=== PATIENT | male | born 1955 | race Caucasian/White ===

== ENCOUNTER → 2017-01-27 | Outpatient (CLI) | payer MEDICARE, OTHER ==
--- NOTE | 2017-01-28 06:19 | CONS ---
DATE OF CONSULTATION: 01/27/2017 CONSULTATION/NEW PATIENT EVALUATION A 61-year-old gentleman who has been evaluated in the sleep center for possible obstructive sleep apnea-hypopnea syndrome. HISTORY OF PRESENT ILLNESS/SLEEP-WAKE EVALUATION: SLEEP SCHEDULE: Patient's usual sleep schedule from 11:30 p.m. until around 8 or 9 a.m. FALLING ASLEEP: Sometimes he has problem with falling asleep, but usually falls asleep well. He has TV in bedroom. DURING SLEEP: Sleeps in different positions. He has episodes of stopped breathing according to a friend. See positive symptoms of restless leg. He wakes up from sleep 3 times with nocturia. DURING THE DAY/WAKE STATE: In the morning, he wakes up tired, has problems with concentration. [place] Sleepiness Scale increased to 9. PAST MEDICAL HISTORY: Positive for cardiomyopathy, acid reflux, swelling of legs, back pain, recent finger cellulitis, Darier's disease. PAST SURGICAL HISTORY: Status post right knee surgery, status post bilateral cataract surgery. MEDICATIONS: Carvedilol, lovastatin, ropinirole, omeprazole, spironolactone, furosemide, vitamin D3 supplement, Percocet, hydroxyzine, ( ). SOCIAL HISTORY: Negative for smoking. Alcohol consumption occasional. REVIEW OF SYSTEMS: Awakenings from sleep, sleepiness during the day, dry itching skin. No fevers. No double vision. No recent chest pain. No shortness of breath. No abdominal pain. No bleeding episodes. No blood in urine. No seizure episodes. FAMILY HISTORY: Heart problems, arthritis, anemia, restless legs. PHYSICAL EXAMINATION: During physical exam, gentleman without distress. VITAL SIGNS: BP 104/64, HR 80, RR 16. Height 5 feet 2 inches, weight 169, BMI 30.9. Neck 15-1/4 inches in circumference. Temperature 97.9. Oxygen saturation at room air 95%. HEENT: PERRLA. EOMI. Oropharynx, extremely low position of soft palate. NECK: Supple. No JVD. Thyroid is not palpable. LUNGS: Clear to percussion and to auscultation. Good air exchange. No wheezing or rhonchi. HEART: S1, S2 regular. No murmurs, gallops or rubs. ABDOMEN: Slightly obese. EXTREMITIES: No clubbing or cyanosis. RISK CONTROL OFFICER: Awake, alert, and oriented x3. Cranial nerves 2 to 7 intact. There is no fasciculation or atrophy noted. No focal deficits observed. SKIN: Extremely dry with the multiple plaques on whole body except face. IMPRESSION: 1. Snoring, multiple awakenings from sleep, extremely low position of soft palate, sleepiness, witnessed episodes of stopped breathing; obstructive sleep apnea-hypopnea syndrome. 2. Mild obesity. BMI 30.9. 3. History of cardiomyopathy. 4. History of swelling of the legs. 5. Back arthritis. 6. History of anemia. 7. Recent finger cellulitis. 8. Darier's disease. 9. Status post right knee surgery. 10. Status post bilateral cataract surgery. PLAN: 1. Polysomnography for evaluation of patient's breathing during sleep. 2. CPAP/BiPAP titration if sleep study confirms obstructive sleep apnea-hypopnea syndrome. 3. Preferable position during sleep on the side. 4. No driving if patient feels any sleepiness. Patient is aware of civil and criminal liability for unsafe driving. 5. I will see patient for follow-up visit to explain results of the testing and following plan. Thank you very much for referring this patient for consultation. Sincerely, Patric Han MD, PhD, FAASM. Diplomat of [place] [employer], Sleep Medicine Board by [place] [employer] [employer] Binder Sorter of [facility] [place]
== END | disposition home or self-care (01) ==
LOC: SLEEP 15:52
PROVIDERS: ATTEND Internal Medicine
DX: G47.33 Obstructive sleep apnea (adult) (pediatric) (principal); E66.9 Obesity, unspecified; L03.019 Cellulitis of unspecified finger; Q82.8 Other specified congenital malformations of skin; Z98.890 Other specified postprocedural states; Z68.30 Body mass index [BMI] 30.0-30.9, adult; Z79.899 Other long term (current) drug therapy
CPT/HCPCS: 99211

== ENCOUNTER → 2017-02-25 | Outpatient (CLI) | payer MEDICARE, OTHER ==
[2017-02-25 14:39] LABS: CH 26.9; CHCM 32.5; HCT 42.6 % (39.0-53.0); HDW 2.85; HGB 13.6 gm/dL (13.0-17.5); MCH 26.6 pg (25.0-35.0); MCV 83.1 fL (80.0-100.0); RBC 5.13 m/uL (4.30-5.90); RDW 15.4 % (11.5-15.5); WBC 11.6 k/uL (3.8-10.6)
[2017-02-25 14:55] LABS: ALT 39 U/L (21-72); AST 29 U/L (17-59); Cholesterol 213 mg/dL (<200); HDL Cholesterol 41 mg/dL (40-60); Triglycerides 111 mg/dL (<150)
== END | disposition home or self-care (01) ==
LOC: LABWHC1 14:17
PROVIDERS: ATTEND Physician Assistant
DX: Q82.8 Other specified congenital malformations of skin (principal); Z79.899 Other long term (current) drug therapy
CPT/HCPCS: 36415; 80061; 84450; 84460; 85027

== ENCOUNTER → 2017-06-15 | Outpatient (CLI) | payer MEDICARE, OTHER ==
--- NOTE | 2017-06-15 14:53 | PN ---
PROGRESS NOTE DATE OF SERVICE: 06/15/2017 A 62-year-old gentleman who has been followed in the Sleep Center for treatment of obstructive sleep apnea-hypopnea syndrome. Recently patient had diagnostic polysomnogram and CPAP titration and I discussed results of the sleep studies with patient in details. He has severe sleep apnea. According to results of titration, respiration was on control with CPAP at 10 cm of water. Patient received his CPAP unit about 1 month ago. He started to use it, but for some reason, according to patient, he takes his mask off during the night. Subsequently, reading from the machine showed that he is not compliant with the treatment at the present time. Pressure is 10 cm of water. Leak is 25 L/minute, which is average range. Apnea-hypopnea index from the reading of the machine still above 10, but the patient again did not use it well. Usage is only 2 hours, 2 nights for more than 4 hours. [place] Sleepiness Scale today is 8. MEDICATIONS: Carvedilol, lovastatin, Ropinirole, omeprazole, spironolactone, furosemide, vitamin D3, Percocet, Thus, it said oxygen. The patient does not take Percocet anymore, unknown type of these during. PHYSICAL EXAM: Patient in no distress BP 113/70, HR 98, RR 16, weight 176.8, temperature 98.1 oxygen saturation at room air 95%. OROPHARYNX: Low position of soft palate. ABDOMEN: Obese. Neck Supple, no JVD. Thyroid is not palpable. LUNGS Clear to percussion and to auscultation. Good air exchange. No wheezing or rhonchi. HEART S1, S2 regular. No murmurs, gallops, or rubs. EXTREMITIES No clubbing or cyanosis. END TOUCHING MACHINE OPERATOR Awake, alert, and oriented X3. Cranial nerves 2 to 7 intact. There is no fasciculation or atrophy noted. No focal deficits observed. IMPRESSION: 1. Severe obstructive sleep apnea-hypopnea syndrome; apnea-hypopnea index 31.7. Patient was started on treatment with CPAP at 10 cm of water, but takes his mask off the face during the night. 2. Mild obesity. 3. History of cardiomyopathy. 4. History of swelling of the legs. 5. Back arthritis. 6. History of anemia. 7. Darier's disease. 8. Status post right knee surgery. 9. Status post bilateral cataract surgery. PLAN: 1. Patient will continue to use his CPAP equipment every night for the whole night. 2. Watching and losing weight. 3. Sleep hygiene with regular time in bed for at least 7-1/2 hours. 4. No driving if feeling any sleepiness. 5. We will check patient mask and if necessary, we will change the mask. Thank you very much for allowing me to participate in the management of your patient. Sincerely, Patric Han MD, PhD, FAASM Diplomat of [employer] [employer] [employer] Tester [facility] [place] MMODL / IJN: [id number] /
== END | disposition home or self-care (01) ==
LOC: SLEEP 13:13
PROVIDERS: ATTEND Internal Medicine
DX: G47.33 Obstructive sleep apnea (adult) (pediatric) (principal); E66.9 Obesity, unspecified; Q82.8 Other specified congenital malformations of skin; Z79.899 Other long term (current) drug therapy

== ENCOUNTER → 2017-08-11 | Outpatient (CLI) | payer MEDICARE, OTHER ==
--- NOTE | 2017-08-11 14:57 | PN ---
PROGRESS NOTE DATE OF SERVICE: 08/11/2017 62-year-old gentleman has been followed in Sleep Center for treatment of obstructive sleep apnea-hypopnea syndrome. The patient has his machine for about 3 months and trying to use it, but sometimes he has problem related to allergy. I checked his CPAP unit. Pressure is 10 cm of water. Leak is acceptable 22 L/minute. The patient feels that the pressure could be more. Apnea-hypopnea index reading is 13.5, which is above normal and apnea index is 9.7. [place] Sleepiness Scale today is 5. The patient feels that when he can use his machine, he feels better during the sleep and during the day. MEDICATIONS: Carvedilol, lovastatin, ropinirole, omeprazole, spironolactone, furosemide, vitamin D3. PHYSICAL EXAM: GENERAL Patient in no distress. VITAL SIGNS BP 126/78, HR 92, RR 16, height 5 and 2, weight 182, BMI 33.2, temp 97.0, oxygen saturation at room air 97%. HEENT PERRLA, EOMI, evaluation of oropharynx showed significant low position of soft palate. NECK Supple, no JVD. Thyroid is not palpable. LUNGS Clear to percussion and to auscultation. Good air exchange. No wheezing or rhonchi. HEART S1, S2 regular. No murmurs, gallops, or rubs. ABDOMEN Slightly obese. Soft and nontender. Bowel sounds are present. No organomegaly appreciated. EXTREMITIES No clubbing or cyanosis. CONTROL ROOM TENDER Awake, alert, and oriented X3. Cranial nerves 2 to 7 intact. There is no fasciculation or atrophy. noted. No focal deficits observed. SKIN Multiple scaling. IMPRESSION: 1. Severe obstructive sleep apnea-hypopnea syndrome. Apnea-hypopnea index 31.7, improved with CPAP. The patient feels better with the machine while he is able to use it and feels better during the day. 2. Allergy patient has sometimes difficult to use machine secondary to allergy. 3. Mild obesity. 4. History of cardiomyopathy. 5. History of swelling of the legs. 6. Back arthritis. 7. History of anemia. 8. Darier's disease. 9. Status post right knee surgery. 10.Status post bilateral cataract surgery. PLAN: 1. I will adjust his machine to the automatic regimen from the range of pressure from 5 to 14. 2. Continue to use CPAP equipment every night. 3. I will write a prescription to ask for prolongation of trial period with the machine to document the patient has good compliance with treatment. 4. Losing weight. 5. No driving if feeling sleepiness. Thank you very much for allowing me to participate in management of your patient. Sincerely, Patric Han MD, PhD, FAASM Diplomat of [place] [employer] [employer] Brand Protection Manager of [facility] [place] MMODL / IJN: [id number] /
== END | disposition home or self-care (01) ==
LOC: SLEEP 13:57
PROVIDERS: ATTEND Internal Medicine
DX: G47.33 Obstructive sleep apnea (adult) (pediatric) (principal); E66.9 Obesity, unspecified; M46.90 Unspecified inflammatory spondylopathy, site unspecified; Q82.8 Other specified congenital malformations of skin; Z98.890 Other specified postprocedural states

== ENCOUNTER → 2017-10-19 | Outpatient (CLI) | payer MEDICARE, OTHER ==
[2017-10-19 12:22] LABS: HCT 40.7 % (39.0-53.0); HGB 12.7 gm/dL (13.0-17.5); MCH 26.8 pg (25.0-35.0); MCHC 31.4 g/dL (31.0-37.0); MCV 85.6 fL (80.0-100.0); Mean Platelet Volume 6.6; Platelet Count 208 k/uL (150-450); RBC 4.75 m/uL (4.30-5.90); RDW 14.9 % (11.5-15.5); WBC 6.3 k/uL (3.8-10.6)
[2017-10-19 12:30] LABS: ALT 108 U/L (21-72); AST 84 U/L (17-59); Cholesterol 212 mg/dL (<200); HDL Cholesterol 34 mg/dL (40-60); LDL Cholesterol,Calculated 156 mg/dL (0-99); Triglycerides 108 mg/dL (<150)
== END | disposition home or self-care (01) ==
LOC: LABWHC1 11:37
PROVIDERS: ATTEND Physician Assistant
DX: Q82.8 Other specified congenital malformations of skin (principal); Z79.899 Other long term (current) drug therapy
CPT/HCPCS: 36415; 80061; 84450; 84460; 85027

== ENCOUNTER → 2018-02-20 | Outpatient (CLI) | payer MEDICARE, OTHER ==
[2018-02-20 10:34] LABS: HCT 40.2 % (39.0-53.0); HGB 12.8 gm/dL (13.0-17.5); Hypochromasia Slight; MCH 27.5 pg (25.0-35.0); MCHC 31.8 g/dL (31.0-37.0); MCV 86.4 fL (80.0-100.0); Mean Platelet Volume 6.3; Platelet Count 241 k/uL (150-450); RBC 4.65 m/uL (4.30-5.90); RDW 15.1 % (11.5-15.5); WBC 7.6 k/uL (3.8-10.6)
[2018-02-20 10:44] LABS: ALT 26 U/L (21-72); AST 24 U/L (17-59); Cholesterol 182 mg/dL (<200); HDL Cholesterol 31 mg/dL (40-60); LDL Cholesterol,Calculated 101 mg/dL (0-99); Triglycerides 249 mg/dL (<150)
== END | disposition home or self-care (01) ==
LOC: LABWHC1 10:11
PROVIDERS: ATTEND Physician Assistant
DX: Q82.8 Other specified congenital malformations of skin (principal); Z79.899 Other long term (current) drug therapy
CPT/HCPCS: 36415; 80061; 84450; 84460; 85027

== ENCOUNTER → 2018-05-31 | Outpatient (CLI) | payer MEDICARE, OTHER ==
[2018-05-31 17:34] LABS: Anion Gap 7.7 mmol/L (4.00-12.00); Calcium 9.3 mg/dL (8.7-10.3); Carbon Dioxide 27.3 mmol/L (21.6-31.8); Magnesium 1.7 mg/dL (1.5-2.4)
== END | disposition home or self-care (01) ==
LOC: LABWHC1 11:10
PROVIDERS: ATTEND Internal Medicine
DX: Z51.81 Encounter for therapeutic drug level monitoring (principal); Z79.899 Other long term (current) drug therapy
CPT/HCPCS: 36415; 80048; 83735

== ENCOUNTER → 2019-03-19 | Outpatient (CLI) | payer MEDICARE, OTHER ==
[2019-03-19 11:37] LABS: HGB 11.7 gm/dL (13.0-17.5); MCH 27.7 pg (25.0-35.0); MCHC 31.5 g/dL (31.0-37.0); Mean Platelet Volume 6.1; Platelet Count 218 k/uL (150-450); RBC 4.21 m/uL (4.30-5.90); WBC 8.1 k/uL (3.8-10.6)
[2019-03-19 17:31] LABS: Chol/HDL Ratio 5.39; LDL Cholesterol,Calculated 76.2 mg/dL (0.0-131.0); VLDL Calculation 46.8 mg/dL (5.00-40.00)
== END | disposition home or self-care (01) ==
LOC: LABWHC1 09:54
PROVIDERS: ATTEND Physician Assistant
DX: Q82.8 Other specified congenital malformations of skin (principal); Z79.899 Other long term (current) drug therapy
CPT/HCPCS: 36415; 80061; 84450; 84460; 85027

== ENCOUNTER → 2019-08-27 | Outpatient (CLI) | payer MEDICARE, OTHER ==
[2019-08-27 16:05] LABS: African American GFR (CKD) 91.8 (60.0-200.0); Anion Gap 8.7 mmol/L (4.00-12.00); Calcium 9.4 mg/dL (8.7-10.3); Carbon Dioxide 28.3 mmol/L (21.6-31.8); Non-African American GFR(CKD) 79.2 (60.0-200.0); Potassium 4.3 mmol/L (3.5-5.5)
== END | disposition home or self-care (01) ==
LOC: LABWHC1 10:51
PROVIDERS: ATTEND Internal Medicine
DX: I50.9 Heart failure, unspecified (principal)
CPT/HCPCS: 36415; 80048

== ENCOUNTER → 2020-04-02 | Outpatient (CLI) | payer MEDICARE, OTHER ==
[2020-04-02 13:27] LABS: Anisocytosis Slight; Basophils # (A) 0.1 k/uL (0-0.2); Basophils % (A) 1 %; Eosinophils # (A) 0.4 k/uL (0-0.7); Eosinophils % (A) 4 %; HCT 39.2 % (39.0-53.0); HGB 12.4 gm/dL (13.0-17.5); Lymphocytes # (A) 1.1 k/uL (1.0-4.8); Lymphocytes % (A) 12 %; MCH 27.6 pg (25.0-35.0); MCHC 31.6 g/dL (31.0-37.0); MCV 87.2 fL (80.0-100.0); Mean Platelet Volume 6.9; Monocytes # (A) 0.4 k/uL (0-1.0); Monocytes % (A) 4 %; Neutrophils # (A) 7.1 k/uL (1.3-7.7); Neutrophils % (A) 78 %; Platelet Count 226 k/uL (150-450); RBC 4.49 m/uL (4.30-5.90); WBC 9.1 k/uL (3.8-10.6)
[2020-04-02 18:31] LABS: Chol/HDL Ratio 5.15; LDL Cholesterol,Calculated 57.6 mg/dL (0.0-131.0); VLDL Calculation 50.4 mg/dL (5.00-40.00)
== END | disposition home or self-care (01) ==
LOC: LABWHC1 11:01
PROVIDERS: ATTEND Physician Assistant
DX: Z51.81 Encounter for therapeutic drug level monitoring (principal); Z79.899 Other long term (current) drug therapy
CPT/HCPCS: 36415; 80061; 84450; 84460; 85025

== ENCOUNTER → 2021-03-12 | Outpatient (CLI) | payer MEDICARE ==
--- NOTE | 2021-03-12 10:54 | CT ---
EXAMINATION TYPE: CT knee RT wo con DATE OF EXAM: 03/12/2021 COMPARISON: None at this location HISTORY: Right knee pain CT DLP: 146.7 mGycm Automated exposure control for dose reduction was used. Contrast: None Technique: Axial images 3 mm thick sections. Reconstructed images in the coronal and sagittal plane. Three-D reconstructed images performed separately by the technologist on a separate computer are revi ewed. FINDINGS: The patella appears absent. There are multiple small calcific fragments expected region of the carolee ceps tendon and patellar tendon region. Some of these are lateral to the patellofemoral joint space. There is a secondary ossification posterior to the lateral femoral condyle. No acute fractures are evident. No significant joint effusion is evident. Popliteal cyst is identifie d. A metallic foreign body is within the proximal diaphyseal tibia the final image which is limited e valuation. There is mild diffuse joint space narrowing of the medial and lateral compartment joint spaces. Some proximal tibial spurring may be present. IMPRESSION: 1. 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 2. MILD DEGENERATIVE JOINT CHANGES.
== END | disposition home or self-care (01) ==
LOC: RADCTMAIN 08:07
PROVIDERS: ATTEND Orthopaedic Surgery
DX: M17.11 Unilateral primary osteoarthritis, right knee (principal)

== ENCOUNTER 2022-01-26 07:06 | Day surgery (SDC) | payer MEDICARE, BC ==
[2022-01-22 13:38] VITALS: BMI 34.9
[~2022-01-26 07:06] MED LIST: LACTATED RINGERS 1,000 ML IV SCH; LIDOCAINE 1% (10MG/ML) FOR IV START INTRADERMA PRN
[2022-01-26 07:40] VITALS: RESP 16; TEMP 97.8
[2022-01-26 08:01] LABS: Glucose,Whole Blood 142 mg/dL (70-110)
[2022-01-26] MEDS ORDERED: PROPOFOL 10 MG/ML 20 ML VIAL IV ONE (08:08)
--- NOTE | 2022-01-26 08:13 | P.GSHP ---
History of Present Illness H&P Date: 01/26/22 Chief Complaint: Colon cancer screening 66-year-old male here today for colonoscopy. Last colonoscopy over 10 years. Only diverticulosis was found. No bowel complaints. No family history of colon cancer. Past Medical History Past Medical History: Diabetes Mellitus, GERD/Reflux, Hyperlipidemia, Hypertension, Osteoarthritis (OA), Pneumonia, Skin Disorder Additional Past Medical History / Comment(s): cardiomyopathy, irregular heart beat, AICD., RLS., dariers skin disease., pneumonia 6 weeks ago, History of Any Multi-Drug Resistant Organisms: None Reported Past Surgical History: AICD, Cholecystectomy, Hernia Repair, Orthopedic Surgery Additional Past Surgical History / Comment(s): medtronic aicd (2018 dylon castillo)., right knee surgeries., cataracts. Past Anesthesia/Blood Transfusion Reactions: No Reported Reaction Type of Cardiac Device: AICD Device Placement Date:: 2018 [employer] Past Psychological History: No Psychological Hx Reported Smoking Status: Never smoker Past Alcohol Use History: Occasional Past Drug Use History: None Reported - Past Family History Mother Family Medical History: No Reported History Medications and Allergies Home Medications Medication Instructions Recorded Confirmed Type Acitretin [Soriatane] 25 mg PO DAILY 01/22/22 01/22/22 History Canagliflozin/Metformin HCl 2 tab PO DAILY 01/22/22 01/22/22 History [Invokamet Xr 150-1,000 mg Tab] Cinnamon Bark [Cinnamon] 2,000 mg PO BID 01/22/22 01/22/22 History Ergocalciferol [Vitamin D2 (1250 50,000 unit PO WEEKLY 01/22/22 01/22/22 History Mcg = 42997 Iu)] Fluticasone/Umeclidin/Vilanter 1 inhalation INHALATION DAILY 01/22/22 01/22/22 History [Trelegy Ellipta 100-62.5-25] Furosemide [Lasix] 20 mg PO DAILY 01/22/22 01/22/22 History Pantoprazole [Protonix] 40 mg PO DAILY 01/22/22 01/22/22 History Pioglitazone [Actos] 15 mg PO DAILY 01/22/22 01/22/22 History Rosuvastatin Calcium 20 mg PO HS 01/22/22 01/22/22 History Sacubitril/Valsartan [Entresto 24 1 each PO BID 01/22/22 01/22/22 History mg-26 mg Tablet] Tacrolimus [Protopic] 1 applic TOPICAL DIRECTED 01/22/22 01/22/22 History Triamcinolone 0.1% Ointment 1 applic TOPICAL BID 01/22/22 01/22/22 History [Kenalog 0.1% Ointment] carvediloL [Coreg] 25 mg PO BID 01/22/22 01/22/22 History rOPINIRole HCL [Requip] 0.5 mg PO HS 01/22/22 01/22/22 History Allergies Allergy/AdvReac Type Severity Reaction Status Date / Time No Known Allergies Allergy Verified 01/26/22 07:29 Surgical - Exam Vital Signs Temp Pulse Resp BP Pulse Ox 97.8 F 86 16 99/62 94 L 01/26/22 07:33 01/26/22 07:33 01/26/22 07:33 01/26/22 07:33 01/26/22 07:33 Physical exam: General: Well-developed, well-nourished HEENT: Normocephalic, sclerae nonicteric Abdomen: Nontender, nondistended Extremities: No edema Neuro: Alert and oriented Results - Labs Abnormal Lab Results - Last 24 Hours (Table) 01/26/22 Range/Units 07:48 POC Glucose (mg/dL) 142 H (70-110) mg/dL Assessment and Plan (1) Colon cancer screening Narrative/Plan: Will proceed with colonoscopy at this time Current Visit: Yes Status: Acute Code(s): Z12.11 - ENCOUNTER FOR SCREENING FOR MALIGNANT NEOPLASM OF COLON SNOMED Code(s): 160109160
--- NOTE | 2022-01-26 08:34 | P.PCN ---
Date of Procedure: 01/26/22 Procedure(s) Performed: PREOPERATIVE DIAGNOSIS: Colon cancer screening POSTOPERATIVE DIAGNOSIS: Ascending colon polyps, diverticulosis PROCEDURE: Colonoscopy with cold biopsy ANESTHESIA: MAC SURGEON: Charbel Poole M.D. SPECIMENS: Ascending colon polyps ENDOSCOPIC PROCEDURE: The patient was placed on the endoscopy table in the left decubitus position. The Olympus colonoscope was inserted into the anus and passed under direct visualization to the base of the cecum. The appendiceal orifice was visualized. From that point the scope was slowly withdrawn inspecting all surfaces carefully. There were no neoplastic inflammatory or polypoid lesions throughout the cecum. In the ascending colon there were 3 small superficial polyps that were removed using the cold biopsy forceps. The remainder of the ascending transverse descending sigmoid and rectum appeared normal. The patient had rodriguez diverticulosis without evidence of inflammatory change. Digital rectal examination was normal. The patient was taken to the recovery room in stable condition per anesthesia guidelines. RECOMMENDATIONS: Await biopsy results. Repeat colonoscopy in 5 years.
[2022-01-26 09:13] VITALS: BP 102/66; PULSE 80
== END 2022-01-26 09:22 | disposition home or self-care (01) ==
LOC: ORWHC2ENDO 07:06
PROVIDERS: ATTEND Surgery
DX: Z12.11 Encounter for screening for malignant neoplasm of colon (principal); D12.2 Benign neoplasm of ascending colon; K57.30 Diverticulosis of large intestine without perforation or abscess without bleeding; K21.9 Gastro-esophageal reflux disease without esophagitis; E11.9 Type 2 diabetes mellitus without complications; E78.5 Hyperlipidemia, unspecified; I10 Essential (primary) hypertension; M19.90 Unspecified osteoarthritis, unspecified site; Z87.01 Personal history of pneumonia (recurrent); I42.9 Cardiomyopathy, unspecified; Z95.810 Presence of automatic (implantable) cardiac defibrillator; G25.81 Restless legs syndrome; D86.3 Sarcoidosis of skin; Z90.49 Acquired absence of other specified parts of digestive tract; Z98.49 Cataract extraction status, unspecified eye; I11.0 Hypertensive heart disease with heart failure; I50.9 Heart failure, unspecified; G47.33 Obstructive sleep apnea (adult) (pediatric); Z97.2 Presence of dental prosthetic device (complete) (partial); Z98.890 Other specified postprocedural states; Z79.84 Long term (current) use of oral hypoglycemic drugs; Z79.899 Other long term (current) drug therapy
CPT/HCPCS: 88305; 45380; J2704

== ENCOUNTER 2023-05-30 16:22 | Emergency (ER) | payer MEDICARE ==
--- NOTE | 2023-05-30 17:02 | ED ---
Chest Pain HPI - General Chief Complaint: Chest Pain Stated Complaint: Chest Pain,Dizziness Time Seen by Provider: 05/30/23 16:38 Source: patient Mode of arrival: ambulatory Limitations: no limitations - History of Present Illness Initial Comments: This patient is a 68-year-old man who presents to have evaluation for chest pain and lightheadedness/dizziness. The patient states that he went to see his physician, Dr. Lilly, who recommended that he come here for further evaluation. He states that he has had a couple of episodes of chest pain over the past few weeks. He indicates substernal area. It is dull pain, intermittent. Currently no symptoms. He states he does occasionally feel lightheaded or dizzy associated with this. The last episode occurred after he had been biking, but he did not have pain during the exertion. No dyspnea, diaphoresis, nausea and vomiting. MD Complaint: chest pain -: week(s) Onset: during rest Pain Location: substernal Pain Radiation: none Quality: aching, dull Consistency: intermittent Improves With: nothing Worsens With: nothing Treatments Prior to Arrival: none - Related Data Home Medications Medication Instructions Recorded Confirmed Acitretin [Soriatane] 25 mg PO DAILY 01/22/22 05/30/23 Furosemide [Lasix] 20 mg PO DAILY 01/22/22 05/30/23 Pantoprazole [Protonix] 40 mg PO DAILY 01/22/22 05/30/23 Rosuvastatin Calcium 20 mg PO HS 01/22/22 05/30/23 Sacubitril/Valsartan [Entresto 24 1 tab PO BID 01/22/22 05/30/23 mg-26 mg Tablet] carvediloL [Coreg] 25 mg PO BID 01/22/22 05/30/23 rOPINIRole HCL [Requip] 0.5 mg PO HS 01/22/22 05/30/23 Dupilumab [Dupixent Pen] 300 mg SQ Q14D 05/30/23 05/30/23 Empagliflozin/Metformin HCl 2 tab PO DAILY 05/30/23 05/30/23 [Synjardy Xr 12.5-1,000 mg Tab] Semaglutide [Ozempic] 1 mg SQ MONTANO 05/30/23 05/30/23 Allergies Allergy/AdvReac Type Severity Reaction Status Date / Time No Known Allergies Allergy Verified 05/30/23 18:22 Review of Systems ROS Statement: Those systems with pertinent positive or pertinent negative responses have been documented in the HPI. ROS Other: All systems not noted in ROS Statement are negative. Constitutional: Denies: fever, chills, weakness Respiratory: Denies: cough, dyspnea Cardiovascular: Reports: chest pain. Denies: palpitations, edema Gastrointestinal: Denies: abdominal pain, nausea, vomiting, diarrhea Genitourinary: Denies: dysuria, hematuria Musculoskeletal: Denies: back pain Skin: Denies: rash Neurological: Denies: headache, weakness, numbness EKG Findings - EKG Results: EKG: interpreted by ERMD, sinus rhythm (Rate 67 bpm) - Blocks, [place], Hypertrophy, ST Abn: QRS axis and voltage: left axis deviation (-30 to -90) (Borderline left axis) Past Medical History Past Medical History: Diabetes Mellitus, GERD/Reflux, Hyperlipidemia, Hypertension, Osteoarthritis (OA), Pneumonia, Skin Disorder Additional Past Medical History / Comment(s): cardiomyopathy, irregular heart beat, AICD., RLS., dariers skin disease., pneumonia 6 weeks ago, History of Any Multi-Drug Resistant Organisms: None Reported Past Surgical History: AICD, Cholecystectomy, Hernia Repair, Orthopedic Surgery Additional Past Surgical History / Comment(s): medtronic aicd (2019 dylon whitmanjonathan)., right knee surgeries., cataracts. Past Anesthesia/Blood Transfusion Reactions: No Reported Reaction Type of Cardiac Device: AICD Device Placement Date:: 2018 [employer] Past Psychological History: No Psychological Hx Reported Smoking Status: Never smoker Past Alcohol Use History: Occasional Past Drug Use History: None Reported - Past Family History Mother Family Medical History: No Reported History General Exam Limitations: no limitations General appearance: alert, in no apparent distress Head exam: Present: atraumatic, normocephalic Eye exam: Present: normal appearance. Absent: scleral icterus, conjunctival injection ENT exam: Present: normal oropharynx Neck exam: Present: normal inspection Respiratory exam: Present: normal lung sounds bilaterally. Absent: respiratory distress, wheezes, rales, rhonchi, stridor, accessory muscle use Cardiovascular Exam: Present: regular rate, normal rhythm, normal heart sounds. Absent: systolic murmur, diastolic murmur, rubs, gallop GI/Abdominal exam: Present: soft. Absent: distended, tenderness, guarding, rebound, rigid, mass Extremities exam: Present: normal inspection, normal capillary refill. Absent: pedal edema, calf tenderness Back exam: Present: normal inspection. Absent: CVA tenderness (R), CVA tenderness (L) Neurological exam: Present: alert Skin exam: Present: warm, dry, intact, normal color. Absent: rash Course Vital Signs 05/30/23 05/30/23 05/30/23 16:26 18:01 18:45 Temperature 98.0 F 97.9 F Pulse Rate 90 65 66 Respiratory 18 18 18 Rate Blood Pressure 123/79 125/83 149/99 O2 Sat by Pulse 99 96 97 Oximetry 05/30/23 05/30/23 19:32 19:50 Temperature 98.6 F Pulse Rate 75 72 Respiratory 18 16 Rate Blood Pressure 136/95 135/98 O2 Sat by Pulse 97 97 Oximetry Chest Pain MDM - MDM The patient had chest x-ray which I interpreted as negative for acute infiltrate, congestive heart failure, pneumothorax. Patient is 68-year-old man who has had some episodes of chest pain, I did discuss the results of the workup here and discuss admission to be seen by cardiology, have serial cardiac enzymes, and telemetry monitoring. The patient states that he is not having symptoms and he would like to go home. He does have appointment coming with cardiology in the next two weeks. He understands that cardiac etiology has not been ruled out. The patient will return if the symptoms recur. Discussed return parameters. Was pt. sent in by a medical professional or institution (, PA, DIKE SUPERVISOR, urgent care, hospital, or [facility]...) When possible be specific @ -[No] Did you speak to anyone other than the patient for history (EMS, parent, family, police, friend...)? What history was obtained from this source @ -[No] Did you review nursing and triage notes (agree or disagree)? Why? @ -[I reviewed and agree with nursing and triage notes] Were old charts reviewed (outside hosp., previous admission, EMS record, old EKG, old radiological studies, urgent care reports/EKG's, [facility] records)? Report findings @ -[No old charts were reviewed] Differential Diagnosis (chest pain, altered mental status, abdominal pain women, abdominal pain men, vaginal bleeding, weakness, fever, dyspnea, syncope, headache, dizziness, GI bleed, back pain, seizure, CVA, palpatations, mental health, musculoskeletal)? @ -[Differential Chest Pain: Stable Angina, Unstable Angina, STEMI, NSTEMI Aortic Dissection, Pneumothorax, Musculoskeletal, Esophageal Spasm GERD, Cholecystitis, Pancreatitis, Zoster, this is not meant to be an all-inclusive list. EKG interpreted by me (3pts min.). @ -[I interpreted As above] X-rays interpreted by me (1pt min.). @ -[I interpreted as above CT interpreted by me (1pt min.). @ -[None done] U/S interpreted by me (1pt. min.). @ -[None done] What testing was considered but not performed or refused? (CT, X-rays, U/S, labs)? Why? @ -[None] What meds were considered but not given or refused? Why? @ -[None] Did you discuss the management of the patient with other professionals (professionals i.e. , PA, DIKE SUPERVISOR, lab, RT, psych nurse, vp digital marketing social media and crm, hoe runner, teacher, press officer, case packer and sealer)? Give summary @ -[No] Was smoking cessation discussed for >3mins.? @ -[No] Was critical care preformed (if so, how long)? @ -[No] Were there social determinants of health that impacted care today? How? (Homelessness, low income, unemployed, alcoholism, drug addiction, transportation, low edu. Level, literacy, decrease access to med. care, long term, rehab)? @ -[No] Was there de-escalation of care discussed even if they declined (Discuss DNR or withdrawal of care, Hospice)? DNR status @ -[No] What co-morbidities impacted this encounter? (DM, HTN, Smoking, COPD, CAD, Cancer, CVA, ARF, Chemo, Hep., AIDS, mental health diagnosis, sleep apnea, mor bid obesity)? @ -[None] Was patient admitted / discharged? Hospital course, mention meds given and route, prescriptions, significant lab abnormalities, going to OR and other pertinent info. @ -[See above Undiagnosed new problem with uncertain prognosis? @ -[No] Drug Therapy requiring intensive monitoring for toxicity (Heparin, Nitro, Insulin, Cardizem)? @ -[No] Were any procedures done? @ -[No] Diagnosis/symptom? @ -Acute chest pain Acute, or Chronic, or Acute on Chronic? @ -[default] Uncomplicated (without systemic symptoms) or Complicated (systemic symptoms)? @ -[default] Side effects of treatment? @ -[No] Exacerbation, Progression, or Severe Exacerbation? @ -[No] Poses a threat to life or bodily function? How? (Chest pain, [place], [place], pneumonia, PE, COPD, DKA, ARF, appy, cholecystitis, CVA, Diverticulitis, Homicidal, Suicidal, threat to staff... and all critical care pts) @ -[Undetermined at this point but chest pain related to cardiac etiology may become life-threatening if progressing to IL/congestive heart failure Disposition Clinical Impression: Chest pain Disposition: HOME SELF-CARE Condition: Good Instructions (If sedation given, give patient instructions): Chest Pain (ED) Is patient prescribed a controlled substance at d/c from ED?: No Referrals: Norman Lilly MD [Primary Care Provider] - 1-2 days Tarun Salamanca MD [STAFF PHYSICIAN] - 1-2 days
[2023-05-30 18:10] LABS: Basophils % (A) 0 %; Eosinophils # (A) 0.1 k/uL (0-0.7); Eosinophils % (A) 1 %; HCT 48.6 % (39.0-53.0); HGB 15.5 gm/dL (13.0-17.5); Lymphocytes # (A) 1.2 k/uL (1.0-4.8); Lymphocytes % (A) 12 %; MCH 27.3 pg (25.0-35.0); MCHC 31.9 g/dL (31.0-37.0); MCV 85.8 fL (80.0-100.0); Monocytes # (A) 0.5 k/uL (0-1.0); Monocytes % (A) 5 %; Neutrophils # (A) 8.5 k/uL (1.3-7.7); Neutrophils % (A) 81 %; Platelet Count 181 k/uL (150-450); RBC 5.66 m/uL (4.30-5.90); RDW 15.5 % (11.5-15.5); WBC 10.5 k/uL (3.8-10.6)
[2023-05-30 18:19] LABS: Partial Thromboplastin Time 24.7 sec (22.0-30.0); Prothrombin Time 11.3 sec (10.0-12.5)
[2023-05-30 18:30] LABS: ALT 21 U/L (4-49); AST 25 U/L (17-59); African American GFR (CKD) 84 (>60 ml/min/1.73 sqM); Albumin 4.3 g/dL (3.5-5.0); Alkaline Phosphatase 80 U/L (38-126); Anion Gap 12 mmol/L; Blood Urea Nitrogen 23 mg/dL (9-20); Calcium 9.1 mg/dL (8.4-10.2); Carbon Dioxide 25 mmol/L (22-30); Chloride 102 mmol/L (98-107); Glucose 97 mg/dL (74-99); Non-African American GFR(CKD) 72 (>60 ml/min/1.73 sqM); Potassium 4.6 mmol/L (3.5-5.1); Sodium 139 mmol/L (137-145); Total Bilirubin 1.4 mg/dL (0.2-1.3); Total Protein 7.6 g/dL (6.3-8.2)
--- NOTE | 2023-05-30 18:34 | XR ---
EXAMINATION TYPE: XR chest 2V DATE OF EXAM: 05/30/2023 COMPARISON: None INDICATION: Chest pain TECHNIQUE: Single frontal view of the chest is obtained. FINDINGS: The heart size is mildly prominent. Pacemaker overlies left chest The pulmonary vasculature is normal. The lungs are clear. IMPRESSION: 1. No acute pulmonary process.
[2023-05-30 19:57] VITALS: BP 135/98; PULSE 72; RESP 16; TEMP 98.6
== END 2023-05-30 19:51 | disposition home or self-care (01) ==
LOC: EC 16:22
DX: R07.9 Chest pain, unspecified (principal); I10 Essential (primary) hypertension; E11.36 Type 2 diabetes mellitus with diabetic cataract; E78.5 Hyperlipidemia, unspecified; K21.9 Gastro-esophageal reflux disease without esophagitis; M19.90 Unspecified osteoarthritis, unspecified site; Z79.84 Long term (current) use of oral hypoglycemic drugs; Z79.899 Other long term (current) drug therapy; Z90.49 Acquired absence of other specified parts of digestive tract
CPT/HCPCS: 36415; 71046; 80053; 83735; 84484; 85025; 85610; 85730; 93005; 99285

== ENCOUNTER → 2023-07-13 | Outpatient (CLI) | payer MEDICARE ==
--- NOTE | 2023-07-13 10:27 | CT ---
EXAMINATION TYPE: CT brain wo con DATE OF EXAM: 07/13/2023 HISTORY: Dizziness, headache CT DLP: 1144.10 mGycm. Automated Exposure Control for Dose Reduction was Utilized. TECHNIQUE: CT scan of the head is performed without contrast. COMPARISON: CT brain January 26, 2012. FINDINGS: There is no acute intracranial hemorrhage or midline shift identified. Ventricles and sul ci within normal limits in size for patient's age. [place]-white matter differentiation fairly well pres erved. Bilateral aphakia redemonstrated. The visualized paranasal sinuses are grossly clear. Near com plete opacification of left mastoid air cells is redemonstrated. IMPRESSION: No acute intracranial hemorrhage or midline shift. Possible left-sided mastoiditis versu s retained secretions. Correlate clinically with point tenderness at this level advised.
--- NOTE | 2023-07-13 11:21 | US ---
EXAMINATION TYPE: US carotid duplex BILAT DATE OF EXAM: 07/13/2023 COMPARISON: CLINICAL INDICATION: Male, 68 years old with history of R41.3 OTHER AMNESIA; Dizziness. No HTN. No hx tia or stroke. TECHNIQUE: Carotid duplex ultrasound examination. Indirect Doppler criteria was utilized. FINDINGS: EXAM MEASUREMENTS: RIGHT: Peak Systolic Velocity (PSV) cm/sec ----- Right CCA: 109.5 ----- Right ICA: 96.9 ----- Right ECA: 100.4 ICA/CCA ratio: 0.9 RIGHT: End Diastole cm/sec ----- Right CCA: 35.7 ----- Right ICA: 25.8 ----- Right ECA: 21.5 LEFT: Peak Systolic Velocity (PSV) cm/sec ----- Left CCA: 92.0 ----- Left ICA: 78.7 ----- Left ECA: 131.8 ICA/CCA ratio: 0.69 LEFT: End Diastole cm/sec ----- Left CCA: 29.9 ----- Left ICA: 21.5 ----- Left ECA: 25.2 VERTEBRALS (direction of flow): Right Vertebral: Antegrade Left Vertebral: Antegrade Rhythm: Normal COAL DELIVERER NOTES: No elevated velocities or significant stenosis. Plaque right bulb near proximal I CA. IMPRESSION: 1. Mild plaquing right carotid bulb without significant flow-limiting stenosis. Criteria for Assigning % of Stenosis / Diameter reduction (Estimation based on the indirect measurements of the internal carotid artery velocities (ICA PSV). 1. Normal (no stenosis)=ICA PSV < 125 cm/s: ratio < 2.0: ICA EDV<40 cm/s. 2. Less than 50% stenosis=ICA PSV < 125 cm/s: ratio < 2.0: ICA EDV<40 cm/s. 3. 50 to 69% stenosis=ICA PSV of 125 to 230 cm/s: ration 2.0 ? 4.0: ICA EDV 40-100 cm/s. 4. Greater than 70% stenosis to near occlusion= ICA PSV > 230 cm/s: ratio > 4.0: ICA EDV > 100 cm/s. 5. Near occlusion= ICA PSV velocities may be low or undetectable: variable ratio and ICA EDV. 6. Total occlusion=unable to detect flow.
== END | disposition home or self-care (01) ==
LOC: RADCTMAIN 09:44
PROVIDERS: ATTEND Family Medicine
DX: I65.21 Occlusion and stenosis of right carotid artery (principal); R51.9 Headache, unspecified; R42 Dizziness and giddiness
CPT/HCPCS: 70450; 93880

== ENCOUNTER → 2023-08-09 | Outpatient (CLI) | payer MEDICARE | LOC: CPPFTMAIN 08:43 | PROVIDERS: ATTEND Family Medicine | DX: R06.00 Dyspnea, unspecified (principal); R51.9 Headache, unspecified; R41.3 Other amnesia | CPT/HCPCS: 94060; 94726; 94729 ==

== ENCOUNTER 2023-10-03 07:12 | Day surgery (SDC) | payer MEDICARE, OTHER ==
[2023-10-03] MEDS: SODIUM CHLORIDE 0.9% 1,000 ML IV SCH (07:40)
[2023-10-03 07:48] LABS: Glucose,Whole Blood 117 mg/dL (70-110)
[2023-10-03 07:52] VITALS: BP 125/68; PULSE 109; RESP 18; TEMP 96.5
--- NOTE | 2023-10-03 12:12 | P.EPPROC ---
- EP Procedure Note Electrophysiology Procedure Note: Diagnosis Recurrent presyncope Twelve-lead EKG shows sinus rhythm normal NH interval narrow QRS normal QT interval Tilt table test per protocol Baseline blood pressure 104/64 mmHg, baseline heart rate 81 beats a minute Patient was tilted upright in angle of 70 degree protocol Immediate drop in blood pressure to about 90 mmHg systolic Blood pressure remained between 85 to 95 mmHg systolic without any change in heart rate No symptoms noted He was laid supine the end of the procedure Impression Mild orthostatic hypotension syndrome Normal twelve-lead EKG
== END 2023-10-03 09:41 | disposition home or self-care (01) ==
LOC: CATHEP 07:12
PROVIDERS: ATTEND Internal Medicine Clinical Cardiac Electrophysiology
DX: I95.1 Orthostatic hypotension (principal); E78.5 Hyperlipidemia, unspecified; I42.8 Other cardiomyopathies; E11.9 Type 2 diabetes mellitus without complications; I10 Essential (primary) hypertension; Z88.8 Allergy status to other drugs, medicaments and biological substances; Z79.899 Other long term (current) drug therapy
CPT/HCPCS: 93660